=== PATIENT | female | born 1945 | race African-American/Black ===

== ENCOUNTER 2020-02-03 16:20 | Inpatient (IN) | payer MEDICARE, OTHER ==
[~2020-02-03] VITALS: Ht 162.6 cm; Wt 72.6 kg
--- NOTE | 2020-02-03 01:55 | NUR ---
GPS RN NOTE WHEN ASKED THE PATIENT WHO TO CALL TO NOTIFY ABOUT HER ADMISSION AT [facility], PATIENT STATED," I DO NOT WANT YOU TO CALL MY SON PRINCE, HE IS THE ONE WHO SENT ME TO THE HOSPITAL, I DO NOT WANT HIM TO KNOW WHERE I AM NOW." ASKED THE PT. WHAT MEDICINES SHE TAKES AT HOME FOR MED RECON, PT. IS UNABLE TO PROVIDE INFO ABOUT HER MEDS DUE TO FORGETFULNESS & STATED," MY SON TAKES CARE OF MY MEDS, I DON'T KNOW." INFORMED THE PATIENT THAT WE NEED TO CALL HER SON TO COLLECT MORE INFO ABOUT HER MEDS BUT PT TOLD RN & CHARGE NURSE NOT TO CALL & DISCLOSE HER INFORMATION TO HER SON PRINCE. PATIENT WANTED TO USE [facility] MED LIST FOR MED RECON. Addendum: 02/04/20 at 0202 by VENECIA LEONARD RN DOCUMENTATION TIME IS 02/03/20 @ 2100, NOT 0155.
[~2020-02-03 16:20] MED LIST: EFAV1TAB PO
[2020-02-03 19:55] VITALS: BP 124/67
[2020-02-03] MEDS ORDERED: CARB1TAB21 PO (20:25)
[2020-02-03] MEDS ORDERED: CLON0.5T4 PO (20:26)
[2020-02-03] MEDS ORDERED: PANT40TA4 PO (20:28)
[2020-02-03] MEDS ORDERED: MAGNESIUM HYDROXIDE 30 ML UDC PO PRN (20:30)
[2020-02-03] MEDS ORDERED: DOLU50TA PO (20:30)
[2020-02-03] MEDS ORDERED: MAG HYDROX/AL HYDROX/SIMETH 30 ML UDC PO PRN (20:30)
[2020-02-03] MEDS ORDERED: EMTR1TAB17 PO (20:31)
[2020-02-03] MEDS ORDERED: ROPI0.5T4 PO (20:33)
[2020-02-03] MEDS ORDERED: QUET200T PO (20:39)
--- NOTE | 2020-02-03 20:40 | NUR ---
GPS COIN MACHINE SERVICE REPAIRER NOTES: ADMITTED 74 Y/O FEMALE FROM [facility] TO [facility] ER TO GPS UNIT. PER 5150 HOLD, PATIENT'S SON CALLED 911 AFTER PT. REPEATEDLY THREATENED TO CUT HIM, THEIR NEIGHBORS & HERSELF. UPON FACE TO FACE ASSESSMENT, PT. IS A & O X 2-3, CONFUSED, FORGETFUL, AGITATED, DISORGANIZED, UNCOOPERATIVE, RESTLESS, ANXIOUS, DEPRESSED. HAS BOTH LOWER EXTREMITIES WEAKNESS, USES WALKER. FALL RISK. PT ORDERED. DENIES SI/HI AT THIS TIME. FULL BODY ASSESSMENT DONE, SKIN INTACT WITH OLD/HEALED SURGERY SCARS. IMPAIRED JUDGEMENT, POOR INSIGHT & IMPULSE CONTROL. PT REFUSED TO SIGN CONSENT FORMS DUE TO BEING TOO TIRED & EASILY AGITATED. ENVIRONMENTAL SAFETY CHECK DONE. BED ALARM ON. BED IN LOW LOCKED POSITION. ORIENTED TO THE UNIT. CHECKED FOR BELONGING AND CONTRABAND. PROVIDED PT W/ HANDBOOK AND MED GUIDE. PT. IS UNDER CARE OF PSYCHIATRIST DR. COHN & MEDICAL DR. ZAPIEN. NO S/S OF RESP DISTRESS NOTED. VITALS WNL. BREATHING EVEN AND UNLABORED. WILL CONTINUE TO MONITOR Q 15 MINS. FOR SAFETY & BEHAVIOR.
[2020-02-03] MEDS ORDERED: ASPI-1498 PO (20:41)
[2020-02-03] MEDS ORDERED: ACET-73 PO (20:44)
[2020-02-03 20:50] VITALS: BP 124/67
--- NOTE | 2020-02-03 20:50 | NUR ---
GPS RN NOTE MRSA SWAB COLLECTED & LAB WILL PICK IT UP.
[2020-02-03] MEDS ORDERED: BLOOD SUGAR DIAGNOSTIC 1 EACH STRIP IN ONE (21:00)
--- NOTE | 2020-02-03 21:00 | NUR ---
GPS RN NOTE WHEN ASKED THE PATIENT WHO TO CALL TO NOTIFY ABOUT HER ADMISSION AT [facility], PATIENT STATED," I DO NOT WANT YOU TO CALL MY SON PRINCE, HE IS THE ONE WHO SENT ME TO THE HOSPITAL, I DO NOT WANT HIM TO KNOW WHERE I AM NOW." ASKED THE PT. WHAT MEDICINES SHE TAKES AT HOME FOR MED RECON, PT. IS UNABLE TO PROVIDE INFO ABOUT HER MEDS DUE TO FORGETFULNESS & STATED," MY SON TAKES CARE OF MY MEDS, I DON'T KNOW." INFORMED THE PATIENT THAT WE NEED TO CALL HER SON TO COLLECT MORE INFO ABOUT HER MEDS BUT PT TOLD RN & CHARGE NURSE NOT TO CALL & DISCLOSE HER INFORMATION TO HER SON PRINCE. PATIENT WANTED TO USE [facility] MED LIST FOR MED RECON.
--- NOTE | 2020-02-03 21:30 | NUR ---
GPS RN NOTE CALLED [facility] MD, LEFT MESSAGE ABOUT NEW ADMISSION & MED RECON. MD CALLED BACK & STATED THAT HE WILL DO MED RECON.
--- NOTE | 2020-02-03 21:51 | NUR ---
REFUSED ACCU CHECK PATIENT REFUSED ACCU CHECK AFTER ADMISSION DESPITE OF RISKS & BENEFITS EXPLANATIONS, PATIENT KEPT COVERING HER FACE WITH THE BLANKET, EASILY IRRITATED & DID NOT WANT TO BE BOTHERED.
--- NOTE | 2020-02-03 23:00 | NUR ---
GPS RN NOTE MED RECON DONE BY MARIELLA FERRELL.
[2020-02-03] MEDS: TEMAZEPAM 7.5 MG CAPSULE PO PRN (23:39)
--- NOTE | 2020-02-03 23:41 | NUR ---
PRN RESTORIL GIVEN PATIENT VERBALIZED THAT SHE IS UNABLE TO SLEEP & REQUESTED TO GET SLEEPING MEDICINE. PRN RESTORIL 7.5 MG 1 CAP PO GIVEN. WILL CONTINUE TO MONITOR FOR EFFECTIVENESS.
[2020-02-04 07:16] LABS: BASOPHILS % (AUTO) 0.9 % (0.0-2.0); EOSINOPHILS % (AUTO) 3.1 % (0.0-6.0); HEMATOCRIT 37 % (33-45); HEMOGLOBIN 11.7 g/dL (11.5-14.8); LYMPHOCYTES % (AUTO) 52.3 % (20.0-44.0); MEAN CORPUSCULAR HGB CONC 32 g/dl (31.0-36.0); MEAN CORPUSCULAR VOLUME 97 fL (82-100); MONOCYTES # (AUTO) 0.5 /CMM (0.1-1.30); MONOCYTES % (AUTO) 13.5 % (2.0-12.0); NEUTROPHILS # (AUTO) 1.2 /CMM (1.8-8.9); NEUTROPHILS % (AUTO) 30.2 % (43.0-81.0); PLATELET COUNT (AUTO) 229 /CMM (150-450); RED BLOOD CELL COUNT(AUTO) 3.79 MIL/uL (4.0-5.2); WHITE BLOOD COUNT (AUTO) 3.9 K/uL (4.3-11.0)
[2020-02-04 07:35] LABS: CALCIUM, SERUM 9.3 mg/dL (8.5-10.1); CREATININE 0.8 mg/dL (0.6-1.3); POTASSIUM 3.8 mmol/L (3.5-5.1)
[2020-02-04 08:00] VITALS: BP 140/69
[2020-02-04] MEDS: PANTOPRAZOLE 40 MG TABLET.DR PO SCH (08:22)
[2020-02-04] MEDS: CARBIDOPA/LEVODOPA 25/100 MG 1 UDTAB PO SCH ×4 (08:51→21:57)
[2020-02-04] MEDS: ASPIRIN EC 81 MG TABLET.DR PO SCH (08:51)
[2020-02-04] MEDS: ropiniROLE 0.5 MG TABLET PO SCH ×3 (08:51→16:42)
[2020-02-04] MEDS ORDERED: Medication Not On Formulary EA (Efavirenz/Emtricitab/Tenofovir (Atripla Tablet) 1 EACH) PO SCH (09:00)
--- NOTE | 2020-02-04 10:15 | NUR ---
GPS RN NOTE: RECEIVED PATIENT AMBULATING IN HALLWAY WITH WALKER. PATIENT IS HYPERVERBAL, BELIEVES THAT HER SON LIED ABOUT HER SITUATION AND THAT SHE DOES NOT BELONG HERE.PATIENT IS COOPERATIVE WITH PLAN OF CARE AND IS MED COMPLIANT. PATIENT IS AOX3. DOES NOT WANT HER ELDEST SON, PRINCE, TO KNOW WHERE SHE IS. ENVIRONMENTAL CHECKS AND SAFETY PRECAUTIONS IN PLACE. BED IN LOW POSITION, LOCKED WITH 2 SIDE RAILS UP. WILL CONTINUE TO MONITOR PT Q15 FOR MOOD, SAFETY AND BEHAVIOR.
[2020-02-04] MEDS: QUETIAPINE FUMARATE 100 MG TABLET PO SCH ×2 (11:51→16:42)
[2020-02-04] MEDS: Medication Not On Formulary EA (Dolutegravir Sodium (Tivicay) 50 MG) PO SCH (12:38)
[2020-02-04] MEDS: Medication Not On Formulary EA (Emtricitabine/Tenofov Alafenam (Descovy 200-25 mg Tablet PO SCH (12:38)
[2020-02-04 16:00] VITALS: BP 138/79
[2020-02-04 20:12] VITALS: BP 113/62
[2020-02-04] MEDS: TEMAZEPAM 7.5 MG CAPSULE PO PRN (21:57)
[2020-02-05] MEDS: clonazePAM 0.5 MG TABLET PO PRN (04:24)
--- NOTE | 2020-02-05 04:27 | NUR ---
GPS RN NOTE PT ANXIOUS, IRRITABLE, CURSING AT STAFF, USING RACIAL SLURS, UNABLE TO SLEEP AFTER TAKING RESTORIL HRS EARLIER. KLONOPIN 0.5MG 1 TAB GIVEN PO. WILL CONTINUE TO MONITOR
[2020-02-05 08:09] VITALS: BP 111/61
[2020-02-05] MEDS: ropiniROLE 0.5 MG TABLET PO SCH ×3 (08:14→17:07)
[2020-02-05] MEDS: PANTOPRAZOLE 40 MG TABLET.DR PO SCH (08:15)
[2020-02-05] MEDS: Medication Not On Formulary EA (Dolutegravir Sodium (Tivicay) 50 MG) PO SCH (08:15)
[2020-02-05] MEDS: ASPIRIN EC 81 MG TABLET.DR PO SCH (08:15)
[2020-02-05] MEDS: Medication Not On Formulary EA (Emtricitabine/Tenofov Alafenam (Descovy 200-25 mg Tablet PO SCH (08:15)
[2020-02-05] MEDS: QUETIAPINE FUMARATE 100 MG TABLET PO SCH ×2 (08:15→17:07)
[2020-02-05] MEDS: CARBIDOPA/LEVODOPA 25/100 MG 1 UDTAB PO SCH ×4 (08:15→21:32)
--- NOTE | 2020-02-05 09:10 | NUR ---
GPS RN NURSING NOTE: RECEIVED PATIENT IN BEDROOM, SITTING IN WHEELCHAIR. PT C/O PAIN IN RIGHT LOWER EXTREMITY. EDEMA NOTED. PATIENT IS HYPERVERBAL. PATIENT IS COOPERATIVE WITH PLAN OF CARE AND IS MED COMPLIANT. PATIENT IS AOX3. DOES NOT WANT HER ELDEST SON, PRINCE, TO KNOW WHERE SHE IS. ENVIRONMENTAL CHECKS AND SAFETY PRECAUTIONS IN PLACE. BED IN LOW POSITION, LOCKED WITH 2 SIDE RAILS UP. WILL CONTINUE TO MONITOR PT Q15 FOR MOOD, SAFETY AND BEHAVIOR.
--- NOTE | 2020-02-05 14:16 | NUR ---
GPS RN NOTE: US Nancy COWART FROM [place] CONTACTED AND FAXED MEDICAL RECORDS ([phone]) AT [facility] REGARDING ULTRASOUND OF RIGHT LEG ON BEHALF OF DR. RUPALI Cook. FAX RETURNED NO RESPONSE. MEDICAL RECORDS IS CLOSED FOR TODAY. WILL ENDORSE TO FAX AUTHORIZATION OF DISCLOSURE TOMORROW MORNING
[2020-02-05] MEDS: ACETAMINOPHEN 325 MG TABLET PO PRN (14:27)
[2020-02-05] MEDS ORDERED: DESCOVY 200-25MG TAB PO SCH (14:30)
[2020-02-05] MEDS ORDERED: TIVICAY 50MG TAB PO SCH (14:30)
[2020-02-05 16:01] VITALS: BP 109/66
[2020-02-05 20:08] VITALS: BP 123/59
[2020-02-05] MEDS: TEMAZEPAM 7.5 MG CAPSULE PO PRN (21:33)
--- NOTE | 2020-02-05 21:35 | NUR ---
GPS RN NOTE PT ASKED FOR SLEEP MED TO HELP HER SLEEP, RESTORIL 7.5MG 1 TAB GIVEN PO. WILL CONTINUE TO MONITOR AND REASSESS PT.
[2020-02-06] MEDS: ACETAMINOPHEN 325 MG TABLET PO PRN (01:24)
--- NOTE | 2020-02-06 06:51 | NUR ---
GPS RN NOTE PT REFUSED WEEKLY SKIN ASSESSMENT. STATES "MY SKIN IS GOOD". A/O X2. NO COMPLAINS OF PAIN, NO DISTRESS. WILL ENDORSE TO AM NURSE.
[2020-02-06] MEDS: PANTOPRAZOLE 40 MG TABLET.DR PO SCH (07:30)
[2020-02-06 08:00] VITALS: BP 130/75
[2020-02-06] MEDS: clonazePAM 0.5 MG TABLET PO PRN ×3 (08:45→19:56)
[2020-02-06] MEDS: ASPIRIN EC 81 MG TABLET.DR PO SCH ×2 (08:45→09:00)
[2020-02-06] MEDS: QUETIAPINE FUMARATE 100 MG TABLET PO SCH ×3 (08:45→16:29)
[2020-02-06] MEDS: ropiniROLE 0.5 MG TABLET PO SCH ×4 (08:45→16:29)
[2020-02-06] MEDS: CARBIDOPA/LEVODOPA 25/100 MG 1 UDTAB PO SCH ×5 (08:45→21:05)
[2020-02-06] MEDS ORDERED: OLANZAPINE 10 MG VIAL IM STA (08:57)
[2020-02-06] MEDS ORDERED: LORAZEPAM INJ 2 MG/ML VIAL IM STA (08:57)
--- NOTE | 2020-02-06 08:58 | NUR ---
patient agitated and aggressive toward staff not following directions notified with new order Zyprexa 5mg IM and ativan 2mg IM all orders carried out .
[2020-02-06] MEDS: DESCOVY 200-25MG TAB PO SCH ×2 (08:59→09:51)
[2020-02-06] MEDS: TIVICAY 50MG TAB PO SCH ×2 (08:59→09:51)
[2020-02-06] MEDS ORDERED: TIVICAY 50MG TAB PO SCH (09:00)
--- NOTE | 2020-02-06 09:15 | NUR ---
RN Note:Patient calm and quite ,selective with meds called and informed him . ,held the zyprexa 5mg IM and ativan 2mg IM .Will continue to monitor patient .
--- NOTE | 2020-02-06 11:40 | NUR ---
Family Contact: SW called pts son, Kike ([phone]), and discussed the pts plan. Pts son stated that the pt is going to need placement because she cannot return to the facility.
--- NOTE | 2020-02-06 12:08 | NUR ---
Initial Discharge Plan: Pt currently resides at a facility located at [address] [place] [address], [address], [place] [address]; ([phone]). Per pt, she would like to go back. Per pts son, Kike ([phone]), pt needs placement. SW will work with the pt and the MD regarding appropriate discharge planning. SW will form a safe and proper discharge.
--- NOTE | 2020-02-06 12:44 | NUR ---
RN NOTE:Patient medicated with klonopin 0.5mg po for anxiety ,will continue to monitor .
--- NOTE | 2020-02-06 15:18 | NUR ---
Group Note: SW encouraged pt to attend group therapy on 02/06/20 at 2pm discussing discharge planning but the pt was on the phone and stated that she did not need to discuss her discharge with other people because she already told the SW today that she was going to be discharged back to her boyfriends house or with any of her cousins. Pt presented as verbally and physically aggressive earlier today so the SW deemed the pt inappropriate for group at this time.
[2020-02-06 16:00] VITALS: BP 136/77
--- NOTE | 2020-02-06 19:20 | NUR ---
RN OPENING NOTES: PT. RESTING IN BED ,CONFUSED PARANOID , HYPERVERBAL ,DISORGNIZED EASILY AGITATED , ALL NEEDS ATTENDED ANTICIPATED, ENCOURAGED PT. TO VERBALIZED ANY FEELING , NO ACUTE DISTRESS NOTED , NEEDS FREQUENTLY REDIRECTIONS , REALITY ORIENTIONS PROVIDED, WILL CONTINUITY WITH CARE.
--- NOTE | 2020-02-06 19:57 | NUR ---
RN NOTES: ANXIETY PT. C/O FEELING ANXIOUS KLONOPIN 0.5 MG PO PRN GIVEN PER PT. REQUEST , WILL CONTINUE TO MONITOR.
[2020-02-06 20:01] VITALS: BP 117/69
[2020-02-07 08:00] VITALS: BP 100/63
[2020-02-07] MEDS: ropiniROLE 0.5 MG TABLET PO SCH ×3 (08:21→16:35)
[2020-02-07] MEDS: DESCOVY 200-25MG TAB PO SCH (08:21)
[2020-02-07] MEDS: ASPIRIN EC 81 MG TABLET.DR PO SCH (08:21)
[2020-02-07] MEDS: CARBIDOPA/LEVODOPA 25/100 MG 1 UDTAB PO SCH ×4 (08:21→21:14)
[2020-02-07] MEDS: TIVICAY 50MG TAB PO SCH (08:21)
[2020-02-07] MEDS: PANTOPRAZOLE 40 MG TABLET.DR PO SCH (08:22)
[2020-02-07] MEDS: QUETIAPINE FUMARATE 100 MG TABLET PO SCH ×2 (08:22→16:35)
--- NOTE | 2020-02-07 09:23 | NUR ---
GPS RN NOTE: RECEIVED PATIENT IN BEDROOM, SITTING IN WHEELCHAIR.WELL GROOMED, POSITIVE MOOD. SINGING IN THE HALLWAY. PATIENT IS COOPERATIVE WITH PLAN OF CARE AND IS MED COMPLIANT. PATIENT IS AOX3. ENVIRONMENTAL CHECKS AND SAFETY PRECAUTIONS IN PLACE. BED IN LOW POSITION, LOCKED WITH 2 SIDE RAILS UP. WILL CONTINUE TO MONITOR PT Q15 FOR MOOD, SAFETY AND BEHAVIOR.
[2020-02-07 16:00] VITALS: BP 119/73
--- NOTE | 2020-02-07 16:18 | NUR ---
Group Note: SW encouraged pt to attend group therapy on 02/07/20 at 2pm discussing impaired reality testing but the pt refused to attend and stated that she does not need group therapy. Pt presented as verbally and physically aggressive earlier today so the SW deemed the pt inappropriate for group at this time.
[2020-02-07 20:31] VITALS: BP 142/68
[2020-02-07] MEDS: TEMAZEPAM 7.5 MG CAPSULE PO PRN (21:14)
--- NOTE | 2020-02-07 21:18 | NUR ---
RN GPS NOTES PATIENT REQUESTED SLEEP AIDE, STATED WOULD LIKE TO GO TO SLEEP AT THIS TIME. RESTORIL PRN OFFERED AND GIVEN, WILL CONTINUE TO MONITOR FALL PRECAUTIONS RENDERED.
[2020-02-08 08:00] VITALS: BP 107/74
[2020-02-08] MEDS: ropiniROLE 0.5 MG TABLET PO SCH ×3 (08:36→17:09)
[2020-02-08] MEDS: CARBIDOPA/LEVODOPA 25/100 MG 1 UDTAB PO SCH ×4 (08:36→21:33)
[2020-02-08] MEDS: PANTOPRAZOLE 40 MG TABLET.DR PO SCH (08:36)
[2020-02-08] MEDS: ASPIRIN EC 81 MG TABLET.DR PO SCH (08:36)
[2020-02-08] MEDS: TIVICAY 50MG TAB PO SCH (08:39)
[2020-02-08] MEDS: DESCOVY 200-25MG TAB PO SCH (08:39)
[2020-02-08] MEDS: QUETIAPINE FUMARATE 100 MG TABLET PO SCH ×2 (10:06→17:10)
--- NOTE | 2020-02-08 10:19 | NUR ---
Individual Intervention with the Pt: SW met with the pt and informed her that the pt will be having a hearing today that will determine whether or not she will remain in the hospital on a hold.
--- NOTE | 2020-02-08 10:41 | NUR ---
Family Contact: SW called the pts brother, Shemar ([phone]), and informed him that the pt is stating that she can go live with him once she is discharged from the hospital. Pts brother stated that was true and provided the SW with his address which is [address] [place] [address].
--- NOTE | 2020-02-08 15:33 | NUR ---
Group Note: SW encouraged pt to attend group therapy on 02/08/20 at 2pm discussing decision making but the pt refused to attend and stated that she does not need group therapy. Pt stated that she spoke to her brother and he will take her into his home once he finishes renovating this weekend. Pt states that she will be discharged from the hospital very soon and that she does not need to be here.
[2020-02-08 16:00] VITALS: BP 115/75
--- NOTE | 2020-02-08 19:20 | NUR ---
GPS RN NOTE RECEIVED PATIENT RESTING IN HER BED, EYES CLOSED, AROUSED EASILY, , ALERT AND ORIENTED X2-3, DISORGANIZED, EASILY IRRITABLE, NEEDY, PARANOID, SUSPICIOUS. HYPERVERBAL AT TIMES. DENIES SI/HI AT THIS TIME. NO S/S OF ANY DISTRESS AT THIS TIME. PT BREATHING IS EVEN UNLABORED WITH EQUAL RISE AND FALL OF THE CHEST. STABLE ON ROOM AIR. NO C/O PAIN VERBALIZED AT THIS TIME. AMBULATORY WITH WALKER & USES WHEELCHAIR AT TIMES WHEN OUT OF BET. PT IS MEDICATION COMPLIANT. ENVIRONMENTAL SAFETY CHECKS DONE. FALL PRECAUTION CONTINUED. BED ALARM ON. BED IN LOW LOCKED POSITION. CALL GREY WITHIN REACH. WILL CONTINUE TO MONITOR Q15MIN FOR MOOD, SAFETY AND BEHAVIOR
[2020-02-08 20:00] VITALS: BP 141/70
[2020-02-09] MEDS: TEMAZEPAM 7.5 MG CAPSULE PO PRN (00:10)
--- NOTE | 2020-02-09 00:13 | NUR ---
GPS RN NOTE: INSOMNIA PATIENT STATED," I AM CAN'T SLEEP, I NEED TO TAKE MY SLEEPING PILL." PRN RESTORIL 7.5 MG 1 CAP PO GIVEN ORDERED.
[2020-02-09 08:00] VITALS: BP 145/75
[2020-02-09] MEDS: ropiniROLE 0.5 MG TABLET PO SCH ×3 (08:39→16:28)
[2020-02-09] MEDS: ASPIRIN EC 81 MG TABLET.DR PO SCH (08:39)
[2020-02-09] MEDS: CARBIDOPA/LEVODOPA 25/100 MG 1 UDTAB PO SCH ×4 (08:40→20:12)
[2020-02-09] MEDS: PANTOPRAZOLE 40 MG TABLET.DR PO SCH (08:40)
[2020-02-09] MEDS: QUETIAPINE FUMARATE 100 MG TABLET PO SCH ×2 (08:40→16:28)
[2020-02-09] MEDS: DESCOVY 200-25MG TAB PO SCH (08:41)
[2020-02-09] MEDS: TIVICAY 50MG TAB PO SCH (08:41)
[2020-02-09 16:00] VITALS: BP 132/69
[2020-02-09 20:00] VITALS: BP 127/75
--- NOTE | 2020-02-09 20:22 | NUR ---
GPS/HOG HANDLER NURSING NOTES: PT. IN HER ROOM RESTING. NO DISTRESS OR AGITATION NOTED. QUIET AND COOPERATIVE. NO C/O PAIN OR DISCOMFORT. SAFETY ENVIRONMENT OBSERVED AT ALL TIMES. WILL CONTINUE TO MONITOR Q 15 MIN FOR SAFETY AND BEHAVIOR.
[2020-02-10] MEDS: TEMAZEPAM 7.5 MG CAPSULE PO PRN ×2 (01:07→22:17)
[2020-02-10 08:00] VITALS: BP 135/80
[2020-02-10] MEDS: ASPIRIN EC 81 MG TABLET.DR PO SCH (08:10)
[2020-02-10] MEDS: PANTOPRAZOLE 40 MG TABLET.DR PO SCH (08:10)
[2020-02-10] MEDS: ropiniROLE 0.5 MG TABLET PO SCH ×3 (08:10→16:00)
[2020-02-10] MEDS: QUETIAPINE FUMARATE 100 MG TABLET PO SCH ×2 (08:10→16:00)
[2020-02-10] MEDS: TIVICAY 50MG TAB PO SCH (08:11)
[2020-02-10] MEDS: DESCOVY 200-25MG TAB PO SCH (08:11)
[2020-02-10] MEDS: CARBIDOPA/LEVODOPA 25/100 MG 1 UDTAB PO SCH ×4 (08:11→20:47)
--- NOTE | 2020-02-10 09:54 | NUR ---
Dr. Pruitt as the biomedical engineer of the unit gave an order for denial of right to do room search to look for the missing shower head with the hose. Staffs made a thorough search and the thing that we are looking is not in the room.
--- NOTE | 2020-02-10 10:21 | NUR ---
GPS RN NOTE: RECEIVED PATIENT IN ROOM, PATIENT IS COOPERATIVE WITH PLAN OF CARE AND IS MED COMPLIANT DENIES SI/HI AVH . PATIENT IS AOX3. ENVIRONMENTAL CHECKS AND SAFETY PRECAUTIONS IN PLACE. BED IN LOW POSITION, LOCKED WITH 2 SIDE RAILS UP. WILL CONTINUE TO MONITOR PT Q15 FOR MOOD, SAFETY AND BEHAVIOR
[2020-02-10 15:57] VITALS: BP 160/98
--- NOTE | 2020-02-10 19:40 | NUR ---
RN NOTES: PT. IN HER ROOM HYPERVERBAL, PARANOID , NEEDY ,DISORGNIZED EASILY AGITATED , TALKING TO SELF, ALL NEEDS ATTENDED ANTICIPATED, ENCOURAGED PT. TO VERBALIZED ANY FEELING , NO ACUTE DISTRESS NOTED , NEEDS FREQUENTLY REDIRECTIONS , REALITY ORIENTIONS PROVIDED, WILL CONTINUITY WITH CARE.
[2020-02-10] MEDS: clonazePAM 0.5 MG TABLET PO PRN (20:08)
--- NOTE | 2020-02-10 20:10 | NUR ---
RN NOTES: ANXIETY PT. C/O FEELING ANXIOUS KLONOPIN 0.5 MG PO PRN GIVEN PER PT. REQUEST , WILL CONTINUE TO MONITOR.
[2020-02-10 20:29] VITALS: BP 134/90
--- NOTE | 2020-02-10 22:18 | NUR ---
RN NOTES: INSOMNIA PT. C/O UNABLE TO SLEEP RESTORIL 7.5 MG PO PRN GIVEN , PER PT. REQUEST WILL CONTINUE TO MONITOR.
[2020-02-11 06:53] LABS: BASOPHILS % (AUTO) 0.5 % (0.0-2.0); EOSINOPHILS % (AUTO) 2.8 % (0.0-6.0); HEMATOCRIT 34 % (33-45); HEMOGLOBIN 11.1 g/dL (11.5-14.8); LYMPHOCYTES # (AUTO) 2.1 /CMM (0.8-4.8); LYMPHOCYTES % (AUTO) 43.8 % (20.0-44.0); MEAN CORPUSCULAR HGB CONC 33 g/dl (31.0-36.0); MEAN CORPUSCULAR VOLUME 95 fL (82-100); MONOCYTES # (AUTO) 0.5 /CMM (0.1-1.30); NEUTROPHILS % (AUTO) 41.9 % (43.0-81.0); PLATELET COUNT (AUTO) 223 /CMM (150-450); WHITE BLOOD COUNT (AUTO) 4.8 K/uL (4.3-11.0)
[2020-02-11 07:23] LABS: ALBUMIN 3.1 g/dL (3.4-5.0); BILIRUBIN,TOTAL 0.2 mg/dL (0.2-1.0); CREATININE 0.9 mg/dL (0.6-1.3); POTASSIUM 3.8 mmol/L (3.5-5.1); TOTAL PROTEIN, SERUM 7.3 g/dL (6.4-8.2)
[2020-02-11 08:00] VITALS: BP 130/77
[2020-02-11] MEDS: PANTOPRAZOLE 40 MG TABLET.DR PO SCH (08:29)
[2020-02-11] MEDS: CARBIDOPA/LEVODOPA 25/100 MG 1 UDTAB PO SCH ×4 (09:10→21:19)
[2020-02-11] MEDS: ASPIRIN EC 81 MG TABLET.DR PO SCH (09:10)
[2020-02-11] MEDS: ropiniROLE 0.5 MG TABLET PO SCH ×3 (09:10→16:19)
[2020-02-11] MEDS: QUETIAPINE FUMARATE 100 MG TABLET PO SCH ×2 (09:10→16:19)
[2020-02-11] MEDS: DESCOVY 200-25MG TAB PO SCH (09:11)
[2020-02-11] MEDS: TIVICAY 50MG TAB PO SCH (09:12)
[2020-02-11] MEDS ORDERED: IBUPROFEN 200 MG TABLET PO PRN (13:00)
[2020-02-11 16:00] VITALS: BP 128/79
--- NOTE | 2020-02-11 19:20 | NUR ---
RN NOTES: PT. IN HER ROOM, ANXIOUS HYPERVERBAL, PARANOID , NEEDY ,DISORGNIZED EASILY AGITATED , TALKING TO SELF, ALL NEEDS ATTENDED ANTICIPATED, ENCOURAGED PT. TO VERBALIZED ANY FEELING , NO ACUTE DISTRESS NOTED , NEEDS FREQUENTLY REDIRECTIONS , REALITY ORIENTIONS PROVIDED, WILL CONTINUITY WITH CARE.
[2020-02-11] MEDS: clonazePAM 0.5 MG TABLET PO PRN (19:50)
--- NOTE | 2020-02-11 19:54 | NUR ---
RN NOTES : ANXIETY PT. C/O FEELING ANXIOUS,RESTLESS, KLONOPIN 0.5 MG PO PRN GIVEN PER PT. REQUEST , WILL CONTINUE TO MONITOR.
[2020-02-11 20:50] VITALS: BP 123/73
[2020-02-11] MEDS: TEMAZEPAM 7.5 MG CAPSULE PO PRN (23:22)
--- NOTE | 2020-02-11 23:23 | NUR ---
RN NOTES: INSOMNIA PT. C/O UNABLE TO SLEEP RESTORIL 7.5 MG PO PRN GIVEN , PER PT. REQUEST WILL CONTINUE TO MONITOR.
[2020-02-12 08:00] VITALS: BP 125/63
[2020-02-12] MEDS: CARBIDOPA/LEVODOPA 25/100 MG 1 UDTAB PO SCH ×4 (09:02→20:59)
[2020-02-12] MEDS: QUETIAPINE FUMARATE 100 MG TABLET PO SCH ×2 (09:02→16:17)
[2020-02-12] MEDS: ropiniROLE 0.5 MG TABLET PO SCH ×3 (09:03→16:17)
[2020-02-12] MEDS: ASPIRIN EC 81 MG TABLET.DR PO SCH (09:03)
[2020-02-12] MEDS: PANTOPRAZOLE 40 MG TABLET.DR PO SCH (09:03)
[2020-02-12] MEDS: TIVICAY 50MG TAB PO SCH (09:03)
[2020-02-12] MEDS: DESCOVY 200-25MG TAB PO SCH (09:03)
--- NOTE | 2020-02-12 10:44 | NUR ---
GPS RN NOTE: RECEIVED PATIENT IN BEDROOM, SITTING IN CHAIR..WELL GROOMED, POSITIVE MOOD. PERFORMED AM CARE AND PUT ON MAKEUP. PATIENT IS COOPERATIVE WITH PLAN OF CARE AND IS MED COMPLIANT. PATIENT IS AOX3. ENVIRONMENTAL CHECKS AND SAFETY PRECAUTIONS IN PLACE. BED IN LOW POSITION, LOCKED WITH 2 SIDE RAILS UP.
[2020-02-12 16:00] VITALS: BP 119/87
[2020-02-12 20:20] VITALS: BP 132/72
[2020-02-12] MEDS: TEMAZEPAM 7.5 MG CAPSULE PO PRN (21:17)
[2020-02-13] MEDS: ACETAMINOPHEN 325 MG TABLET PO PRN (02:40)
--- NOTE | 2020-02-13 06:24 | NUR ---
PT REFUSED SKIN CHECK. WILL CONTINUE TO MONITOR
[2020-02-13 08:00] VITALS: BP 132/63
[2020-02-13] MEDS: ropiniROLE 0.5 MG TABLET PO SCH ×3 (08:58→17:22)
[2020-02-13] MEDS: TIVICAY 50MG TAB PO SCH (08:58)
[2020-02-13] MEDS: DESCOVY 200-25MG TAB PO SCH (08:58)
[2020-02-13] MEDS: PANTOPRAZOLE 40 MG TABLET.DR PO SCH (08:59)
[2020-02-13] MEDS: ASPIRIN EC 81 MG TABLET.DR PO SCH (08:59)
[2020-02-13] MEDS: QUETIAPINE FUMARATE 100 MG TABLET PO SCH ×2 (09:00→17:21)
[2020-02-13] MEDS: CARBIDOPA/LEVODOPA 25/100 MG 1 UDTAB PO SCH ×4 (09:10→21:22)
--- NOTE | 2020-02-13 11:00 | NUR ---
gps order fulfillment specialist: md visit seen by dr. zuluaga at this time.
--- NOTE | 2020-02-13 14:30 | NUR ---
gps cosmetic account coordinator: psychiatrist f/u seen by dr. mrash (covering for dr. zendejas) with no new order.
--- NOTE | 2020-02-13 15:12 | NUR ---
Family Contact: MARLIN called the pts brother, Shemar ([phone]), and informed him that the pt will be discharged to his home the following day. SW asked who would pick her up and at what time but he was unable to state that information at this time.
[2020-02-13 16:00] VITALS: BP 134/69
[2020-02-13 20:57] VITALS: BP 104/58
[2020-02-13] MEDS: TEMAZEPAM 7.5 MG CAPSULE PO PRN (21:25)
[2020-02-14] MEDS: ACETAMINOPHEN 325 MG TABLET PO PRN (01:49)
--- NOTE | 2020-02-14 05:48 | NUR ---
GPS RN NOTE PT WOKE UP AROUND 0200 ASKING FOR TYLENOL FOR BILATERAL LOWER EXTREMITY PAIN. RATES PAIN 5/10. TYLENOL 325MG 2 TABS/650MG GIVEN PO. PT WENT BACK TO BED AFTER TAKING THE MEDICATION. ON REASSESSMENT THIS MORNING PT REPORTED A PAIN LEVEL OF 0/10. PT IS IN GOOD CONDITION. SEEN IN UNIT, WALKING AROUND THE HALLWAY. NO S/S OF DISTRESS, A/O X3. NO BEHAVIORAL ISSUES. WILL CONTINUE TO MONITOR AND ENDORSE TO AM SHIFT.
[2020-02-14 08:00] VITALS: BP 142/85
[2020-02-14] MEDS: TIVICAY 50MG TAB PO SCH (08:04)
[2020-02-14] MEDS: DESCOVY 200-25MG TAB PO SCH (08:04)
[2020-02-14] MEDS: ASPIRIN EC 81 MG TABLET.DR PO SCH (08:05)
[2020-02-14] MEDS: QUETIAPINE FUMARATE 100 MG TABLET PO SCH ×2 (08:05→16:29)
[2020-02-14] MEDS: ropiniROLE 0.5 MG TABLET PO SCH ×3 (08:05→16:29)
[2020-02-14] MEDS: PANTOPRAZOLE 40 MG TABLET.DR PO SCH (08:06)
[2020-02-14] MEDS: CARBIDOPA/LEVODOPA 25/100 MG 1 UDTAB PO SCH ×4 (08:09→21:00)
--- NOTE | 2020-02-14 12:35 | NUR ---
Family Contact: SW called pts son, Kike ([phone]), and informed him that the only reason that the pt is not going to a SNF is because the pt is alert and oriented and refused to be placed. Pt had stated from the beginning that she would go to her brother, Shemar's, house. Pts son stated that Shemar is not her brother and he did not understand the situation that the pt told him very well. Pts son stated that he had spoken to Shemar who stated that he would not pick the pt up. SW stated that she will work on the pts discharge plan.
--- NOTE | 2020-02-14 12:37 | NUR ---
Family Contact: SW called the pts brother but in actuality he is her friend, Shemar ([phone]), and left a voicemail stating that she needs to have it confirmed by him that he will not be picking the pt up or taking her into his home.
--- NOTE | 2020-02-14 12:38 | NUR ---
Individual Intervention with the Pt: SW spoke to the pt regarding her discharge and stated that Shemar will no longer pick her up today and take her to his home. Pt stated that she knew that and that was why she was trying to convince one of her cousins to take her in. SW asked if she could speak to this cousin as well so the pt provided her with the contact information.
--- NOTE | 2020-02-14 12:39 | NUR ---
Family Contact: SW called the pts cousin, Radha ([phone]), and informed her that the pt needs to be discharged today and she has orders for discharge. SW stated that the pt has been well behaved on the unit and that she has been cooperative. SW stated that the pt will need to remain compliant with her medications. Pts cousin stated that she will need time to think about whether or not she will be comfortable with taking her in and will call the SW back.
--- NOTE | 2020-02-14 12:40 | NUR ---
SNF Referral: MARLIN faxed a referral to [facility] with attn to CJ to the fax number: [phone].
[2020-02-14 16:00] VITALS: BP 156/78
[2020-02-14] MEDS: TEMAZEPAM 7.5 MG CAPSULE PO PRN (21:03)
[2020-02-14 21:22] VITALS: BP 116/50
[2020-02-15 08:00] VITALS: BP 129/67
[2020-02-15] MEDS: TIVICAY 50MG TAB PO SCH (08:32)
[2020-02-15] MEDS: DESCOVY 200-25MG TAB PO SCH (08:32)
[2020-02-15] MEDS: ASPIRIN EC 81 MG TABLET.DR PO SCH (08:33)
[2020-02-15] MEDS: CARBIDOPA/LEVODOPA 25/100 MG 1 UDTAB PO SCH ×2 (08:33→14:00)
[2020-02-15] MEDS: ropiniROLE 0.5 MG TABLET PO SCH ×2 (08:33→14:00)
[2020-02-15] MEDS: QUETIAPINE FUMARATE 100 MG TABLET PO SCH (08:33)
[2020-02-15] MEDS: PANTOPRAZOLE 40 MG TABLET.DR PO SCH (08:33)
--- NOTE | 2020-02-15 10:07 | NUR ---
Dr. Cano gave an order to D/C hold and D/C to [facility], to continue same meds including same meds including prn and to follow up with psych and medical doctors.
--- NOTE | 2020-02-15 10:16 | NUR ---
SNF Contact: JULIA ([phone]) from [facility] contacted the SW and stated that the pt was accepted to their facility and will be placed in Rm 20A.
--- NOTE | 2020-02-15 10:21 | NUR ---
Family Contact: MARLIN called pts son, Kike ([phone]), and informed him that the pt will be discharged to [facility] today as no one is able to take the pt into their home and she needs placement. SW informed him that the pt has agreed to this placement and appears to understand the reasoning behind it. MARLIN stated that the pt would like her son to bring her some of her belongings and he agreed.
--- NOTE | 2020-02-15 12:02 | NUR ---
Discharge Note: Pt was discharged to [facility] SNF located at [address] [place] [id number]; ([phone]). Pt was transported via [facility] at 3PM. Pt will be in Rm 20A. Pts son, Kike ([phone]), was made aware of placement. Upon discharge, pt appeared to be in a euthymic mood and presented with a calm affect. Pt appeared to be alert and oriented x4 (time, place, self and situation). Pt appeared to be ambulatory with an unsteady gait and uses a walker. Pt denied both suicidal and homicidal ideation as well as auditory and visual hallucinations. Pt will continue to be under the care of her psychiatrist, Dr. Cano, located at [address] [facility], [address] [place] [address]; and public health physician, Dr. Chawla, located at [address] [place] [address]; .
[2020-02-15 16:00] VITALS: BP 116/73
--- NOTE | 2020-02-15 16:15 | NUR ---
GPS/RN-NOTES PATIENT DISCHARGE TO [facility] SNF TODAY. DR. EDMONDS AND DR. MANZANARES AWARE AND AGREES OF PATIENT DISCHARGE WITH ORDERS. REPORT WAS GIVEN TO MADI ( STAFFING DIRECTOR) PATIENT DID NOT VERBALIZE SI/HI,DENIES VISUAL/AUDITORY HALLUCINATIONS AT THE TIME OF DISCHARGE. ALL DISCHARGE MEDICATIONS WAS REVIEWED WITH THE PATIENT WITH UNDERSTANDING. PATIENT SIGN ALL DISCHARGE PAPERS. REFUSED FULL BODY ASSESSMENT PRIOR TO DISCHARGE STATED" THERE'S NOTHING WRONG WITH MY SKIN ". PATIENT LEFT THE UNIT WITH ALL BELONGINGS INCLUDING OWN MEDICATIONS SHE IS ALERT ORIENTED X3, ABLE TO AMBULATE USING WALKER. COORDINATOR VOLUNTEER SERVICES BY AMBULANCE VIA GURNEY WITH TWO STAFF ASSIST. PER NOTES PT. SON PAIGE WAS AWARE OF THE DISCHARGE.
== END 2020-02-15 16:15 | DRG 885 ==
LOC: GPS 19:26
PROVIDERS: ADMIT Psychiatry & Neurology Psychiatry; ATTEND Hospitalist
DX: F31.64 Bipolar disorder, current episode mixed, severe, with psychotic features (principal); N17.0 Acute kidney failure with tubular necrosis; E44.1 Mild protein-calorie malnutrition; F29 Unspecified psychosis not due to a substance or known physiological condition; D64.9 Anemia, unspecified; G20 Parkinson's disease; F02.80 Dementia in other diseases classified elsewhere, unspecified severity, without behavioral disturbance, psychotic disturbance, mood disturbance, and anxiety; G25.0 Essential tremor; E88.09 Other disorders of plasma-protein metabolism, not elsewhere classified; Z68.27 Body mass index [BMI] 27.0-27.9, adult; Z73.6 Limitation of activities due to disability; M79.89 Other specified soft tissue disorders
CPT/HCPCS: 36415; 80048-TC; 80053-TC; 80061-TC; 85025-TC; 87081-TC; 93970-TC; 97116-TC; 97530-TC